=== PATIENT | female | born 1975 | race Two or more races ===

== ENCOUNTER 2018-07-21 07:11 | Inpatient (IN) | payer SELFPAY ==
[~2018-07-21] VITALS: Ht 162.6 cm; Wt 64.4 kg
[2018-07-21] VITALS (14 sets, daily range): BP systolic 125–164; BP diastolic 74–99
[~2018-07-21 07:11] MED LIST: cefOXitin Sod 2 GM in D5W 55 ML IVPB ONE
[2018-07-21] MEDS ORDERED: IRON159 MG PO (08:22)
[2018-07-21] MEDS ORDERED: VITAMIN C500 M1 ORAL (08:22)
--- NOTE | 2018-07-21 09:01 | Anethesia Preoperative Eval ---
Anesthesia Pre-op PMH/ROS General Date of Evaluation: Jul 21, 2018 Time of Evaluation: 09:00 Anesthesiologist: Joseline Stokes CRNA ASA Score: ASA 1 Mallampati Score Class I : Soft palate, uvula, fauces, pillars visible Class II: Soft palate, uvula, fauces visible Class III: Soft palate, base of uvula visible Class IV: Only hard plate visible Mallampati Classification: Class I Surgeon: Summer Diagnosis: Uterine Fibroids Surgical Procedure: Open Abdominal Myomectomy Anesthesia History: none Family History: no anesthesia problems Allergies: Coded Allergies: No Known Allergies (Unverified , 07/21/18) Medications: see eMAR Patient NPO?: Yes NPO Date: Jul 20, 2018 NPO Time: 1900 Past Medical History Cardiovascular: Denies: HTN, CAD, MS, valve dz, arrhythmia, other Pulmonary: Denies: asthma, COPD, ELISA, other Gastrointestinal/Genitourinary: Denies: GERD, CRI, ESRD, other Neurologic/Psychiatric: Denies: dementia, CVA, depression/anxiety, TIA, other Endocrine: Denies: DM, hypothyroidism, steroids, other HEENT: Denies: cataract (L), cataract (R), glaucoma, [place] (L), [place] (R), other Hematology/Immune: Reports: anemia; Denies: DVT, bleeding disorder, other Musculoskeletal/Integumentary: Denies: OA, RA, DJD, DDD, edema, other PMH Narrative: as above PSxH Narrative: no PSH Anesthesia Pre-op Phys. Exam Physician Exam Last Vital Signs Date Time Temp Pulse Resp B/P (MAP) Pulse Ox O2 Delivery O2 Flow Rate FiO2 07/21/18 08:24 Room Air 07/21/18 08:23 98.7 73 18 146/74 (98) 98 98.7 Constitutional: NAD Neurologic: CN 2-12 intact Cardiovascular: RRR Respiratory: CTA Gastrointestinal: other - profoundly distended abdomen, nontender, firm Airway Exam Mallampati Score: Class I MO: full Neck: no issues TMD: > 3 FB ROM: full Teeth: intact Anesthesia Pre-op A/P Labs see chart, reviewed Urine Test Test 07/21/18 07:30 Urine HCG, Qualitative Negative (NEGATIVE) Studies Pre-op Studies: EKG - NSR Risk Assessment & Plan Assessment: ASA I ok to proceed Plan: GETA Status Change Before Surgery: No Pre-Antibiotics Drug: Joseline Moraes CRNA Jul 21, 2018 09:01
[2018-07-21 09:18] LABS: ANION GAP 10 mmol/L (5-15); BLOOD UREA NITROGEN 14 mg/dL (7-18); CALCIUM 9.5 MG/DL (8.5-10.1); CARBON DIOXIDE 22 MMOL/L (21-32); CHLORIDE 104 MMOL/L (98-107); CREATININE 0.6 MG/DL (0.55-1.30); POTASSIUM 4.4 MMOL/L (3.5-5.1); SODIUM 136 MMOL/L (136-145)
[2018-07-21] MEDS ORDERED: Propofol 200mg/20ml IV ONE (10:22)
[2018-07-21] MEDS ORDERED: Zemuron 50mg/5ml Inj IV ONE ×2 (10:22→12:10)
[2018-07-21] MEDS ORDERED: Neostigmine 1mg/ml 10ml Inj ONE (10:22)
[2018-07-21] MEDS ORDERED: Glycopyrrolate 0.2mg/ml 1ml Vial ONE ×3 (10:22→14:11)
[2018-07-21] MEDS ORDERED: NS Irrig 1000ml ONE (10:30)
[2018-07-21] MEDS ORDERED: Sterile Water Irrig 1000ml IRRIG ONE (10:30)
[2018-07-21] MEDS ORDERED: Ropivacaine 5mg/ml Vial 30ml INJ ONE (10:31)
[2018-07-21] MEDS ORDERED: Bupivacaine 0.5% Inj 30 ml vial INJ ONE (10:31)
[2018-07-21] MEDS ORDERED: Lidocaine 1% MPF 10mg/ml 5ml ONE (10:51)
[2018-07-21] MEDS ORDERED: Dexamethasone 4mg/ml vial ONE (11:34)
[2018-07-21] MEDS ORDERED: DiphenhydrAMINE 50mg/ml Inj IVP PRN (11:45)
[2018-07-21] MEDS ORDERED: Metoclopramide 10mg/2ml Inj IVP PRN (11:45)
[2018-07-21] MEDS ORDERED: Hydromorphone 0.5mg/0.5ml inj IVP PRN (11:45)
[2018-07-21] MEDS ORDERED: Ketorolac 30mg Inj ONE (14:16)
--- NOTE | 2018-07-21 14:50 | Immediate Post-Op Evaluation ---
Immediate Post-Op Evalulation Immediate Post-Op Evalulation Procedure: hysteroscopy, open abdominal myomectomy Date of Evaluation: Jul 21, 2018 Time of Evaluation: 14:34 IV Fluids: LR 3000ml, 0.9 NS 700ml, Albumin 5% 500 ml Estimated Blood Loss: 1300 ml Urinary Output: 800 ml Blood Pressure Systolic: 164 Blood Pressure Diastolic: 98 Pulse Rate: 98 Respiratory Rate: 24 O2 Sat by Pulse Oximetry: 99 Temperature (Fahrenheit): 98.2 Pain Score (1-10): 0 Nausea: No Vomiting: No Complications none Patient Status: awake, reacts, extubated Drug: Cefazolin 1000mg Given Within 1 Hr of Incision: Yes Time Given: 10:45 Joseline Stokes CRNA Jul 21, 2018 14:50
[2018-07-21 15:37] LABS: HEMATOCRIT 37.3 % (37.0-47.0); HEMOGLOBIN 12.3 G/DL (12.0-16.0); MEAN CORPUSCULAR VOLUME 90 FL (80-99); PLATELET COUNT 161 K/UL (150-450); RED BLOOD COUNT 4.16 M/UL (4.20-5.40); RED CELL DISTRIBUTION WIDTH 12.7 % (11.6-14.8); WHITE BLOOD COUNT 16.9 K/UL (4.8-10.8)
[2018-07-21 15:44] LABS: ANION GAP 12 mmol/L (5-15); BLOOD UREA NITROGEN 10 mg/dL (7-18); CALCIUM 8.2 MG/DL (8.5-10.1); CARBON DIOXIDE 23 MMOL/L (21-32); CHLORIDE 104 MMOL/L (98-107); CREATININE 0.6 MG/DL (0.55-1.30); POTASSIUM 3.4 MMOL/L (3.5-5.1); SODIUM 139 MMOL/L (136-145)
[2018-07-21 15:45] LABS: LYMPHOCYTES % (AUTO) 8.1 % (20.0-45.0); MONOCYTES % (AUTO) 2.4 % (1.0-10.0); NEUTROPHILS % (AUTO) 89.1 % (45.0-75.0)
[2018-07-21 15:46] LABS: BASOPHILS % (AUTO) 0.3 % (0.0-2.0); EOSINOPHILS % (AUTO) 0.1 % (0.0-3.0)
[2018-07-21] MEDS ORDERED: HYDROcodone/Acetamin 10/325 tab ORAL PRN (17:00)
[2018-07-21] MEDS: D5 1/2NS w/KCl 20mEq 1,000 ML IV SCH (17:27)
[2018-07-22] VITALS: BP 116/74
[2018-07-22] MEDS: D5 1/2NS w/KCl 20mEq 1,000 ML IV SCH ×3 (00:15→14:20)
[2018-07-22 04:00] VITALS: BP 121/72
[2018-07-22 07:34] LABS: BASOPHILS % (AUTO) 0.2 % (0.0-2.0); EOSINOPHILS % (AUTO) 0.2 % (0.0-3.0); HEMATOCRIT 32.4 % (37.0-47.0); HEMOGLOBIN 10.9 G/DL (12.0-16.0); LYMPHOCYTES % (AUTO) 8.7 % (20.0-45.0); MEAN CORPUSCULAR VOLUME 89 FL (80-99); NEUTROPHILS % (AUTO) 84.9 % (45.0-75.0); PLATELET COUNT 139 K/UL (150-450); RED BLOOD COUNT 3.63 M/UL (4.20-5.40); RED CELL DISTRIBUTION WIDTH 12.5 % (11.6-14.8); WHITE BLOOD COUNT 9.4 K/UL (4.8-10.8)
[2018-07-22 08:00] VITALS: BP 114/73
[2018-07-22 08:04] LABS: ANION GAP 10 mmol/L (5-15); BLOOD UREA NITROGEN 6 mg/dL (7-18); CARBON DIOXIDE 26 MMOL/L (21-32); CHLORIDE 107 MMOL/L (98-107); CREATININE 0.7 MG/DL (0.55-1.30); POTASSIUM 3.7 MMOL/L (3.5-5.1); SODIUM 143 MMOL/L (136-145)
[2018-07-22] MEDS: Norco 5mg/325mg tab ORAL PRN ×3 (09:32→20:19)
--- NOTE | 2018-07-22 10:48 | 48 Hour Post Anesthesia Eval ---
Post Anesthesia Evaluation Procedure: hysteroscopy, open abdominal myomectomy Date of Evaluation: Jul 22, 2018 Time of Evaluation: 10:46 Blood Pressure Systolic: 116 0: 58 Pulse Rate: 78 Respiratory Rate: 22 Temperature (Fahrenheit): 97.8 O2 Sat by Pulse Oximetry: 98 Airway: patent Nausea: No Vomiting: No Pain Intensity: 3 Hydration Status: adequate Cardiopulmonary Status: stable Mental Status/LOC: patient returned to baseline Follow-up Care/Observations: n/a Post-Anesthesia Complications: none Follow-up care needed: N/A Armaan Jack MD Jul 22, 2018 10:48
[2018-07-22 12:00] VITALS: BP 101/61
[2018-07-22 16:00] VITALS: BP 126/77
[2018-07-22 20:00] VITALS: BP 139/76
[2018-07-23] VITALS: BP 125/76
[2018-07-23 04:00] VITALS: BP 130/82
[2018-07-23 08:00] VITALS: BP 139/89
--- NOTE | 2018-07-23 09:24 | General Progress Note ---
Progress Note Progress Note POD #2 s/p HUGE myomectomy Pt is ambulating, tolerating PO, voiding Pt reports mild dizziness 24 hrs ago but none last PM and this AM Tmax = 100.9 last night H/H = slightly decreased Incision with some clots but no seepage now Eve intact Dressing removed Plan: 1. Increase diet to regular 2. Ibuprofen 600 q 6 hrs scheduled 3. CBC now 4. Continue aggressive ambulation 5. Anticipate d/c to home tomorrow HOWARD SYLVESTER Jul 23, 2018 09:24
[2018-07-23 09:34] LABS: BASOPHILS % (AUTO) 0.2 % (0.0-2.0); EOSINOPHILS % (AUTO) 0.3 % (0.0-3.0); HEMATOCRIT 31.2 % (37.0-47.0); HEMOGLOBIN 10.5 G/DL (12.0-16.0); LYMPHOCYTES % (AUTO) 9.2 % (20.0-45.0); MEAN CORPUSCULAR VOLUME 90 FL (80-99); MONOCYTES % (AUTO) 5.8 % (1.0-10.0); NEUTROPHILS % (AUTO) 84.5 % (45.0-75.0); PLATELET COUNT 130 K/UL (150-450); RED BLOOD COUNT 3.48 M/UL (4.20-5.40); RED CELL DISTRIBUTION WIDTH 12.6 % (11.6-14.8); WHITE BLOOD COUNT 10.1 K/UL (4.8-10.8)
[2018-07-23 12:00] VITALS: BP 125/80
[2018-07-23 16:00] VITALS: BP 123/77
[2018-07-23 16:16] LABS: BASOPHILS % (AUTO) 0.5 % (0.0-2.0); EOSINOPHILS % (AUTO) 3.1 % (0.0-3.0); HEMATOCRIT 30.5 % (37.0-47.0); HEMOGLOBIN 10.8 G/DL (12.0-16.0); LYMPHOCYTES % (AUTO) 15.4 % (20.0-45.0); MEAN CORPUSCULAR VOLUME 89 FL (80-99); MONOCYTES % (AUTO) 5.3 % (1.0-10.0); NEUTROPHILS % (AUTO) 75.8 % (45.0-75.0); PLATELET COUNT 136 K/UL (150-450); RED BLOOD COUNT 3.41 M/UL (4.20-5.40); RED CELL DISTRIBUTION WIDTH 12.5 % (11.6-14.8); WHITE BLOOD COUNT 11.1 K/UL (4.8-10.8)
[2018-07-23 20:00] VITALS: BP 122/78
--- NOTE | 2018-07-23 22:30 | Brief Operative Note ---
Immediate Post Operative Note Operative Note Chief Complaint: Very Large Uterine Fibroids Pre-op Diagnosis: Large Uterine Fibroids Procedure: Abdominal multiple myomectomy (> 10 myomas), D&C, Hysteroscopy Post-op Diagnosis: Same Findings: consistent w/pre-op dx studies Surgeon: Howard Sylvester MD Mig Tig Welder: Rose Walden MD Anesthesia: general Specimen: yes Complications: none Condition: stable Fluids: LR @ 150 cc/hr Estimated Blood Loss: none Drains: none Implant(s) used?: Yes - Multiple Myomas, [facility], [facility] HOWARD SYLVESTER Jul 23, 2018 22:30
--- NOTE | 2018-07-24 02:30 | Operative Note - Dictated ---
DATE OF OPERATION: 07/23/2018 PREOPERATIVE DIAGNOSIS: Large uterine fibroid. POSTOPERATIVE DIAGNOSIS: Large multiple uterine fibroids. PROCEDURE PERFORMED: 1. Video hysteroscopy. 2. Dilatation and curettage. 3. Endocervical curettage. 4. Endometrial curettage. 5. Abdominal myomectomy. 6. Multiple myomectomy of greater than 10 myomas. SURGEON: Nehemiah Wheeler M.D. LABORATORY ENGINEER: Rose Walden M.D. ANESTHESIOLOGIST: Joseline Stokes CRNA. PROCEDURE IN DETAIL: After all the appropriate consents were signed, the patient was brought to the operating room and placed on the table in supine position. General endotracheal anesthesia was induced without complication. The patient was then placed in dorsal lithotomy position. Perineum, vagina, and abdomen were prepped and draped in the usual fashion for the procedure. The patient was first examined, cervix was identified and after cervical dilation, video hysteroscope was introduced. The uterine cavity was very deep extending over 18 cm. The procedure was continued with visualization of the cavity while it was exceedingly large. There did not appear to be a submucosal fibroid protruding. At this time, the patient was once again evaluated and the endocervical curettage was performed followed by endometrial curettage. Once it was completed, the uterine manipulator was placed and then the procedure began, the abdominal portion. A Pfannenstiel incision was made. The incision was carried through the subcutaneous tissue and the fascia was nicked. The fascial incision was extended bilaterally to expose the peritoneum. The peritoneum was entered sharply and the uterus was visualized. The uterus occupied the entire pelvis and extended way above umbilicus and into the abdominal cavity. The procedure then continued with identifying areas of myoma on the anterior uterus. The uterus was injected with vasopressin solution. At this time, incision on the uterus was made and the procedure continued with continuous morcellation of fibroid to continuously reduce the size of the uterus. Once the uterine size was reduced after approximately 1 hour of incising the fibroid, the uterus was then brought through the incision and exteriorized. The procedure then continued with ongoing identification of myomas and the myoma out of the uterus from multiple incisions on the uterus. The main incision was once again evaluated and no other fibroids were identified in that area. That incision was closed using multiple layers of #0 Vicryl suture. Once this incision was closed, several other incisions were made to remove additional fibroids in the patient's left and posterior uterus. The procedure then continued with visualizing all the operative sites. Additional hemostasis was required as additional sutures were placed on the main incision. Once this was completed and the procedure was completed, the uterus was replaced in the pelvis. No other fibroids were identified in the uterus at this time. Complete hemostasis was once again noted along all the uterine incisions. The abdomen was irrigated and all debris and blood was suctioned. The patient's incision was now closed by first closing the peritoneum followed by approximating the rectus muscle in the midline followed by closing the fascia. Fascia was closed using #0 Vicryl suture bilaterally. Plain suture was used to close the subcutaneous tissue and stainless steel lamonte were placed on the incision. The patient was now placed back in supine position and awakened from general anesthesia. She tolerated the procedure very well. Nehemiah Wheeler M.D. DR: NIMO JOB#: [id number] CC:
[2018-07-24 04:00] VITALS: BP 127/86
[2018-07-24 08:11] VITALS: BP 132/83
[2018-07-24 12:00] VITALS: BP 148/89
--- NOTE | 2018-07-24 15:59 | Discharge Summary ---
Discharge Summary Hospital Course Date of Admission Jul 21, 2018 at 07:11 Date of Discharge 07/24/2018 Admitting Diagnosis Large Uterine Fibroids Reason for Hospitalization: Uterine Myomectomy REGINA Mendieta is a 42 year old female who was admitted on Jul 21, 2018 at 07: 11 for Uterine Fibroids Consultations NONE Procedures Extensive Multiple Myomectomy Hospital Course Uncomplicated Discharge Condition Upon Discharge: stable Discharge Disposition Patient was discharged to Home (01) Discharge Diagnoses: (1) Uterine fibroid HOWARD SYLVESTER Jul 24, 2018 15:59
[2018-07-24 16:00] VITALS: BP 144/89
== END 2018-07-24 17:30 | disposition home or self-care (01) | DRG 743 ==
LOC: SDSOVERFLO 07:11 → 3E 16:16
PROC: 0UB90ZZ Excision of Uterus, Open Approach (ICD-10-PCS; principal; 2018-07-23)
PROC: 0UDB8ZZ Extraction of Endometrium, Via Natural or Artificial Opening Endoscopic (ICD-10-PCS; principal; 2018-07-23)
DX: D25.9 Leiomyoma of uterus, unspecified (principal)
CPT/HCPCS: 36415; 80048; 81025; 82330; 83735; 84100; 85025; 86850; 86900; 86901; 87081; 94003; 94150; J2405; J2710